=== PATIENT | male | born 1960 | race Hispanic/Latino ===

== ENCOUNTER → 2019-07-27 | Outpatient (CLI) | payer OTHER ==
[~2019-07-27] MED LIST: AMLO10TA7 PO; ATOR20TA65 PO; CALC667C10 PO; CHOL100018 PO; FURO-151 PO; GABA-531 PO; HUM10VIA6 SQ; KETO.5OS OS; LATA7.5D OP; LOSA100T58 PO; METO200T49 PO; SEVE800 PO; SEVE800T7 PO; WARF-57 PO
== END | disposition home or self-care (01) ==
LOC: SHCH 13:24
PROVIDERS: ATTEND Internal Medicine Cardiovascular Disease
DX: I11.9 Hypertensive heart disease without heart failure (principal)
CPT/HCPCS: 93306

== ENCOUNTER → 2019-07-29 | Outpatient (CLI) | payer OTHER ==
[~2019-07-29] VITALS: Ht 160 cm; Wt 72.6 kg
[~2019-07-29] MED LIST changes: +REGADENOSON 0.4 MG/5 ML PF SYG IVP SCH
== END | disposition home or self-care (01) ==
LOC: SHCH 07:45
PROVIDERS: ATTEND Internal Medicine Cardiovascular Disease
DX: I12.0 Hypertensive chronic kidney disease with stage 5 chronic kidney disease or end stage renal disease (principal); N18.9 Chronic kidney disease, unspecified; I48.0 Paroxysmal atrial fibrillation; Z99.2 Dependence on renal dialysis
CPT/HCPCS: 78452; 93017; 96374; A9500 ×2; J2785

== ENCOUNTER → 2021-01-24 | Outpatient (CLI) | payer OTHER ==
[~2021-01-24] VITALS: Ht 162.6 cm; Wt 71.2 kg
[~2021-01-24] MED LIST changes: +AMLO-258 PO; -AMLO10TA7 PO; -REGADENOSON 0.4 MG/5 ML PF SYG IVP SCH
[2021-01-24 14:31] LABS: BASOPHILS % (AUTO) 0.7 % (0.0-5.0); HEMATOCRIT 38.9 % (42-54); LYMPHOCYTES % (AUTO) 13.8 % (21.0-51.0); MEAN CORPUSCULAR HGB CONC 32.9 g/dL (32.0-36.0); MEAN CORPUSCULAR VOLUME 91.3 fL (79-99); MONOCYTES % (AUTO) 11.1 % (3.0-13.0); NEUTROPHILS % (AUTO) 71.3 % (40.0-77.0); PLATELET COUNT (AUTO) 196 K/uL (130-400); RED BLOOD CELL COUNT(AUTO) 4.26 MIL/uL (4.50-6.20)
[2021-01-24 14:40] LABS: CREATININE 5.8 mg/dL (0.5-1.5); POTASSIUM 5.8 mmol/L (3.5-5.1)
[2021-01-24 14:43] LABS: INR 3.26 (0.85-1.15); PROTHROMBIN TIME 31.9 SEC (9.6-11.6)
[2021-01-24 14:44] LABS: PARTIAL THROMBOPLASTIN TIME 45.5 SEC (26.3-35.5)
[2021-01-24 16:07] VITALS: BP 159/75
== END | disposition home or self-care (01) ==
LOC: DAH 10:00 → EDSTATUS 01-25 13:00
PROVIDERS: ATTEND Internal Medicine Cardiovascular Disease
DX: I25.10 Atherosclerotic heart disease of native coronary artery without angina pectoris (principal); Z79.01 Long term (current) use of anticoagulants; Z79.4 Long term (current) use of insulin; Z83.3 Family history of diabetes mellitus; Z82.49 Family history of ischemic heart disease and other diseases of the circulatory system; Z79.899 Other long term (current) drug therapy; Z53.8 Procedure and treatment not carried out for other reasons
CPT/HCPCS: 36415; 71045; 80048; 85025; 85610; 85730; 93005

== ENCOUNTER 2021-03-12 08:52 | Day surgery (SDC) | payer OTHER ==
[2021-03-09 13:15] LABS: CREATININE 5.2 mg/dL (0.5-1.5); POTASSIUM 4.3 mmol/L (3.5-5.1)
[2021-03-09 13:16] LABS: INR 1.12 (0.85-1.15); PROTHROMBIN TIME 12.1 SEC (9.6-11.6)
[2021-03-09 13:17] LABS: PARTIAL THROMBOPLASTIN TIME 27.1 SEC (26.3-35.5)
[2021-03-09 13:26] LABS: HEMATOCRIT 33.9 % (42-54); LYMPHOCYTES % (AUTO) 16.1 % (21.0-51.0); MEAN CORPUSCULAR HEMOGLOBIN 30.2 pg (27.0-33.0); MEAN CORPUSCULAR HGB CONC 32.7 g/dL (32.0-36.0); MEAN CORPUSCULAR VOLUME 92.1 fL (79-99); NEUTROPHILS % (AUTO) 67.6 % (40.0-77.0); PLATELET COUNT (AUTO) 178 K/uL (130-400); RED BLOOD CELL COUNT(AUTO) 3.68 MIL/uL (4.50-6.20); RED CELL DISTRIBUTION WIDTH 12.5 % (11.0-15.5); WHITE BLOOD COUNT (AUTO) 5.7 K/uL (4.8-10.8)
[2021-03-09 17:15] VITALS: BP 125/61
[~2021-03-12] VITALS: Ht 162.6 cm; Wt 70.1 kg
[2021-03-12] VITALS (24 sets, daily range): BP systolic 115–146; BP diastolic 55–68
[~2021-03-12 08:52] MED LIST changes: +ALOG25TA2 PO; -ATOR20TA65 PO; +ATOR40TA69 PO; -FURO-151 PO; -GABA-531 PO; -HUM10VIA6 SQ; +INSU100V12 SQ; -KETO.5OS OS; -LATA7.5D OP; +LATA7.5D OU; -LOSA100T58 PO; -METO200T49 PO; +MULT-1367 PO; +OMEP20CA12 PO; -SEVE800 PO; +SODIUM CHLORIDE 0.9% 1000ML 1,000 ML IV ONE
[2021-03-12] MEDS ORDERED: NITROGLYCERIN 2 MG/VIAL VIAL IV ONE (09:23)
[2021-03-12] MEDS ORDERED: IOHEXOL 350 MG/ML 100ML INFUS..BTL IV ONE (09:23)
[2021-03-12] MEDS ORDERED: HEPARIN SODIUM 1000UNIT/ML 10ML VIAL ONE (09:23)
[2021-03-12] MEDS ORDERED: SODIUM BICARB 50MEQ 50ML VIAL 50 ML ONE (09:23)
[2021-03-12] MEDS ORDERED: IOHEXOL-350 50ML VIAL IV ONE (09:23)
[2021-03-12] MEDS ORDERED: MIDAZOLAM HCL 1 MG/ML 2ML VIAL ONE ×2 (09:24→10:25)
[2021-03-12] MEDS ORDERED: MEPERIDINE-PF 25 MG/ML SYG ONE ×2 (09:24→10:25)
[2021-03-12] MEDS ORDERED: LIDOCAINE HCL 2% 20ML ONE (09:24)
[2021-03-12] MEDS ORDERED: ASPIRIN 81MG TAB.CHEW ONE (10:39)
[2021-03-12] MEDS ORDERED: CLOPIDOGREL BISULFATE 300 MG TAB ONE (10:39)
[2021-03-12] MEDS ORDERED: SODIUM CHLORIDE 0.9% 10 ML VIAL IV SCH (10:45)
[2021-03-12] MEDS ORDERED: ONDANSETRON HCL 4 MG/2 ML VIAL IVP PRN (10:45)
[2021-03-12] MEDS ORDERED: DEXTROSE 50%-WATER 50 ML DISP.SYRIN IV PRN (10:45)
[2021-03-12] MEDS ORDERED: ACETAMINOPHEN-CODEINE 300/30MG TAB PO PRN ×2 (10:45)
[2021-03-12] MEDS ORDERED: INSULIN HUMULIN R 100 UNIT/ML 3ML SQ SCH (11:30)
== END 2021-03-12 19:10 | disposition home or self-care (01) ==
LOC: DAH 08:52
PROVIDERS: ATTEND Internal Medicine Cardiovascular Disease
DX: I25.119 Atherosclerotic heart disease of native coronary artery with unspecified angina pectoris (principal); E11.22 Type 2 diabetes mellitus with diabetic chronic kidney disease; N18.6 End stage renal disease; I48.91 Unspecified atrial fibrillation; I42.9 Cardiomyopathy, unspecified; Z79.82 Long term (current) use of aspirin; Z99.2 Dependence on renal dialysis; Z79.01 Long term (current) use of anticoagulants; Z79.899 Other long term (current) drug therapy; Z98.890 Other specified postprocedural states
CPT/HCPCS: 36415; 71045; 80048; 82948 ×2; 85025; 85610; 85730; 93005; 93458; A4215; A4221; A4223 ×2; A4606; A4663; A6260; A6402; C1760 ×2; C1769; C1874; C1887; C1894; C9600; J1644 ×3; J2175 ×2; J2250 ×2; J3490 ×3; J7030; Q9965; Q9967 ×2; 99156; 99157

== ENCOUNTER → 2022-01-24 | Outpatient (CLI) | payer OTHER ==
[~2022-01-24] MED LIST changes: -OMEP20CA12 PO; -SODIUM CHLORIDE 0.9% 1000ML 1,000 ML IV ONE
== END | disposition home or self-care (01) ==
LOC: SHCH 07:52
PROVIDERS: ATTEND Internal Medicine Cardiovascular Disease
DX: I08.0 Rheumatic disorders of both mitral and aortic valves (principal); I13.10 Hypertensive heart and chronic kidney disease without heart failure, with stage 1 through stage 4 chronic kidney disease, or unspecified chronic kidney disease; E11.22 Type 2 diabetes mellitus with diabetic chronic kidney disease; N18.9 Chronic kidney disease, unspecified; I48.0 Paroxysmal atrial fibrillation; E78.5 Hyperlipidemia, unspecified; I25.10 Atherosclerotic heart disease of native coronary artery without angina pectoris; I65.23 Occlusion and stenosis of bilateral carotid arteries; Z95.5 Presence of coronary angioplasty implant and graft
CPT/HCPCS: 93306; 93880

== ENCOUNTER 2023-05-01 06:01 | Day surgery (SDC) | payer OTHER ==
[2023-04-29 10:55] LABS: HEMATOCRIT 37.2 % (42-54); MEAN CORPUSCULAR HEMOGLOBIN 30.6 pg (27.0-33.0); MEAN CORPUSCULAR VOLUME 95.6 fL (79-99); RED BLOOD CELL COUNT(AUTO) 3.89 MIL/uL (4.50-6.20); RED CELL DISTRIBUTION WIDTH 14.5 % (11.0-15.5); WHITE BLOOD COUNT (AUTO) 6.8 K/uL (4.8-10.8)
[2023-04-29 11:04] LABS: CREATININE 6.5 mg/dL (0.5-1.5); POTASSIUM 4.4 mmol/L (3.5-5.1)
[2023-04-29 11:06] LABS: INR 1.18 (0.85-1.15); PROTHROMBIN TIME 13.5 SEC (9.6-11.6)
[2023-04-29 11:08] LABS: PARTIAL THROMBOPLASTIN TIME 32.1 SEC (26.3-35.5)
[2023-04-30 09:11] VITALS: BP 133/64
[2023-05-01] VITALS (17 sets, daily range): BP systolic 101–137; BP diastolic 49–64
[~2023-05-01] VITALS: Ht 162.6 cm; Wt 69.0 kg
[~2023-05-01 06:01] MED LIST changes: +AEC81 PO; -ALOG25TA2 PO; +ALOG6.252 PO; +APIX5TAB PO; +BRIM5DRO21 OS; +BUPIVACAINE/PF 0.5% 30ML VIAL INJ ONE; +CARB100C9 PO; +CEFAZOLIN SODIUM 1 GM VIAL IRRIG ONE; +CEFAZOLIN SODIUM 2 GM VIAL IVPB ONE; -CHOL100018 PO; +FOLI1CAP16 PO; +HYDR-3422 PO; +HYDR-4153 PO; +ISOS30TA92 PO; +LOSA50TA64 PO; -MULT-1367 PO; +TIMO1DRO9 OU; -WARF-57 PO
[2023-05-01] MEDS ORDERED: CEFAZOLIN SODIUM 2 GM VIAL ONE (07:07)
[2023-05-01] MEDS ORDERED: 0.9% NACL 500ML IV.SOLN 500 ML IV ONE (07:07)
[2023-05-01] MEDS ORDERED: BUPIVACAINE/PF 0.5% 30ML VIAL ONE (07:09)
[2023-05-01] MEDS ORDERED: CEFAZOLIN SODIUM 1 GM VIAL ONE (07:09)
[2023-05-01 07:16] LABS: CREATININE 5.9 mg/dL (0.5-1.5); POTASSIUM 4.2 mmol/L (3.5-5.1)
[2023-05-01] MEDS ORDERED: SUCCINYLCHOLINE CHLORIDE 20 MG/ML 10 ML VIAL ONE (07:50)
[2023-05-01] MEDS ORDERED: FENTANYL CITRATE PF 50 MCG/1 ML 2ML VIAL ONE (07:50)
[2023-05-01] MEDS ORDERED: GLYCOPYRROLATE 1 MG/5 ML SYRINGE ONE (07:50)
[2023-05-01] MEDS ORDERED: LIDOCAINE PF 100MG/5ML (2%) SYRINGE 5ML ONE (07:50)
[2023-05-01] MEDS ORDERED: PROPOFOL 10 MG/ML 20ML VIAL IV ONE (07:50)
[2023-05-01] MEDS ORDERED: ONDANSETRON 4MG INJ ONE (07:50)
[2023-05-01] MEDS ORDERED: DEXAMETHASONE SOD PHOSPHATE 10MG/ML 1ML VIAL ONE (07:50)
[2023-05-01] MEDS ORDERED: ROCURONIUM 10MG/1ML SYR 10 MG/ML ML ONE (07:51)
[2023-05-01] MEDS ORDERED: NEOSTIGMINE 5MG/5ML SYR IV ONE (07:51)
[2023-05-01] MEDS ORDERED: MIDAZOLAM HCL 1 MG/ML 2ML VIAL ONE (07:51)
[2023-05-01] MEDS ORDERED: CEFAZOLIN SODIUM 2 GM VIAL IVPB ONE (08:16)
[2023-05-01] MEDS ORDERED: BUPIVACAINE/PF 0.5% 30ML VIAL INJ ONE (08:16)
[2023-05-01] MEDS ORDERED: CEFAZOLIN SODIUM 1 GM VIAL IRRIG ONE (08:16)
== END 2023-05-01 11:25 | disposition home or self-care (01) ==
LOC: DAH 06:01
PROVIDERS: ATTEND Thoracic Surgery (Cardiothoracic Vascular Surgery)
DX: I77.0 Arteriovenous fistula, acquired (principal); Z20.822 Contact with and (suspected) exposure to COVID-19; E11.22 Type 2 diabetes mellitus with diabetic chronic kidney disease; I12.0 Hypertensive chronic kidney disease with stage 5 chronic kidney disease or end stage renal disease; N18.6 End stage renal disease; E78.5 Hyperlipidemia, unspecified; I25.10 Atherosclerotic heart disease of native coronary artery without angina pectoris; Z79.01 Long term (current) use of anticoagulants; Z79.899 Other long term (current) drug therapy; Z79.82 Long term (current) use of aspirin; Z98.890 Other specified postprocedural states
CPT/HCPCS: 80048 ×2; 85027; 85610; 85730; 86850; 86900; 86901; 87426; 36415 ×2; 71045; 93005; 37607; 82948 ×2; A6260; A4663; J7030; J7040; J3010; J0690 ×4; J3490 ×3; J1100; J2710; J0330; J2001; J2250; J2704; J2405; J1644; A6446; A4649; C1713 ×2; A4215; A4223; A4222; A4221

== ENCOUNTER 2023-05-05 09:34 | Inpatient (IN) | payer OTHER ==
[~2023-05-05] VITALS: Ht 162.6 cm; Wt 68.5 kg
[2023-05-05] VITALS (22 sets, daily range): BP systolic 137–159; BP diastolic 60–102
[~2023-05-05 09:34] MED LIST changes: -BUPIVACAINE/PF 0.5% 30ML VIAL INJ ONE; -CEFAZOLIN SODIUM 1 GM VIAL IRRIG ONE; -CEFAZOLIN SODIUM 2 GM VIAL IVPB ONE
[2023-05-05 10:35] LABS: BASOPHILS % (AUTO) 0.8 % (0.0-5.0); EOSINOPHILS % (AUTO) 4.7 % (0.0-8.0); HEMATOCRIT 31.6 % (42-54); MEAN CORPUSCULAR HEMOGLOBIN 30.6 pg (27.0-33.0); MEAN CORPUSCULAR HGB CONC 32.6 g/dL (32.0-36.0); MEAN CORPUSCULAR VOLUME 93.8 fL (79-99); MONOCYTES % (AUTO) 12.8 % (3.0-13.0); NEUTROPHILS % (AUTO) 75.5 % (40.0-77.0); PLATELET COUNT (AUTO) 175 K/uL (130-400); RED BLOOD CELL COUNT(AUTO) 3.37 MIL/uL (4.50-6.20); RED CELL DISTRIBUTION WIDTH 14.2 % (11.0-15.5); WHITE BLOOD COUNT (AUTO) 8.3 K/uL (4.8-10.8)
[2023-05-05 10:43] LABS: ALBUMIN 4.1 g/dL (3.5-5.0); CARBON DIOXIDE 27 mmol/L (21-32); CHLORIDE 91 mmol/L (101-111); GLOMERULAR FILTR. RATE CALC 5 mL/min (>90); GLUCOSE,RANDOM 208 mg/dL (70-105); POTASSIUM 4.6 mmol/L (3.5-5.1); SODIUM SERUM 132 mmol/L (136-145); UREA NITROGEN, BLOOD 73 mg/dL (7-18)
[2023-05-05 10:46] LABS: ASPARTATE AMINOTRANSFERASE 17 U/L (10-37); TOTAL PROTEIN, SERUM 8.4 g/dL (6.0-8.3)
[2023-05-05 11:03] LABS: ALANINE AMINOTRANSFERASE < 6 U/L (12-78)
[2023-05-05 12:42] LABS: INR 1.15 (0.85-1.15); PROTHROMBIN TIME 13.2 SEC (9.6-11.6)
[2023-05-05 12:43] LABS: PARTIAL THROMBOPLASTIN TIME 36.7 SEC (26.3-35.5)
[2023-05-05] MEDS ORDERED: VANCOMYCIN KIT 1 GM/250 ML IV.KIT IV ONE (14:30)
[2023-05-05] MEDS ORDERED: ZOSYN 3.375GM +NS 50ML IVPB ONE (14:30)
[2023-05-05] MEDS ORDERED: ONDANSETRON 4MG INJ IVP PRN (15:30)
[2023-05-05] MEDS ORDERED: GLUCAGON 1MG KIT 1 MG ML IM PRN (15:30)
[2023-05-05] MEDS ORDERED: HYDR-4153 PO (15:57)
[2023-05-05] MEDS ORDERED: ALOG6.252 PO (15:57)
[2023-05-05] MEDS ORDERED: AEC81 PO (15:57)
[2023-05-05] MEDS ORDERED: GABA-529 PO (15:57)
[2023-05-05] MEDS ORDERED: ATOR40TA69 PO (15:57)
[2023-05-05] MEDS ORDERED: METO-408 PO (15:57)
[2023-05-05] MEDS ORDERED: ISOS30TA92 PO (15:57)
[2023-05-05] MEDS ORDERED: HYDR-3422 PO (15:57)
[2023-05-05] MEDS ORDERED: AMLO-258 PO (15:57)
[2023-05-05] MEDS ORDERED: LOSA50TA64 PO (15:57)
[2023-05-05] MEDS ORDERED: FOLI0.8T41 PO (15:57)
[2023-05-05] MEDS ORDERED: ACET325T51 PO (15:57)
[2023-05-05] MEDS: INSULIN HUMULIN R 100 UNIT/ML 3ML SQ SCH ×2 (17:09→20:23)
[2023-05-05] MEDS ORDERED: PHARMACY COMMUNICATION MISC SCH (17:30)
[2023-05-05] MEDS ORDERED: HEPARIN 1,000 UNIT VIAL ONE (17:49)
[2023-05-05] MEDS ORDERED: LIDOCAINE HCL 1% MDV 50ML VIAL ONE (17:49)
[2023-05-05] MEDS ORDERED: VANCOMYCIN PROTOCOL PER PHARMACY IV SCH (18:00)
[2023-05-05] MEDS: ACETAMINOPHEN 325 MG TAB PO PRN (19:53)
[2023-05-05] MEDS ORDERED: HEPARIN 5,000 UNIT VIAL IV SCH (22:30)
[2023-05-05] MEDS ORDERED: ATOR40TA71 PO (23:08)
[2023-05-06 00:02] VITALS: BP 156/65
[2023-05-06 02:41] LABS: HEPATITIS B SURFACE ANTIGEN Non-Reactive (Nonreactive)
[2023-05-06 04:00] VITALS: BP 158/67
[2023-05-06] MEDS: ACETAMINOPHEN 325 MG TAB PO PRN (04:14)
[2023-05-06] MEDS: INSULIN HUMULIN R 100 UNIT/ML 3ML SQ SCH ×4 (05:29→20:47)
[2023-05-06 05:41] LABS: MEAN CORPUSCULAR HEMOGLOBIN 30.1 pg (27.0-33.0); MEAN CORPUSCULAR HGB CONC 32.8 g/dL (32.0-36.0); MEAN CORPUSCULAR VOLUME 91.8 fL (79-99); RED BLOOD CELL COUNT(AUTO) 3.16 MIL/uL (4.50-6.20); RED CELL DISTRIBUTION WIDTH 14.1 % (11.0-15.5); WHITE BLOOD COUNT (AUTO) 7.4 K/uL (4.8-10.8)
[2023-05-06 06:03] LABS: ALBUMIN 3.3 g/dL (3.5-5.0); CREATININE 6.9 mg/dL (0.5-1.5); MAGNESIUM 1.8 mg/dL (1.80-2.40); PHOSPHORUS 4.3 mg/dL (2.5-4.9); POTASSIUM 4.1 mmol/L (3.5-5.1); TOTAL PROTEIN, SERUM 7.2 g/dL (6.0-8.3)
[2023-05-06 08:00] VITALS: BP 152/71
[2023-05-06 11:30] VITALS: BP 152/68
[2023-05-06] MEDS: PANTOPRAZOLE 40 MG/VIAL IVP SCH (11:35)
[2023-05-06] MEDS ORDERED: GABAPENTIN 100 MG CAPSULE PO PRN (15:00)
[2023-05-06 16:00] VITALS: BP 151/76
[2023-05-06 19:00] VITALS: BP 150/69
[2023-05-06] MEDS: HYDROXYZINE 25 MG TABLET PO SCH (20:43)
[2023-05-06] MEDS: METOPROLOL SUCCINATE 25 MG TAB.SR.24H PO SCH (20:43)
[2023-05-06] MEDS: HYDRALAZINE 25MG TABLET PO SCH (20:44)
[2023-05-06] MEDS: APIXABAN 5 MG TABLET PO SCH (20:44)
[2023-05-06] MEDS: ATORVASTATIN 40 MG TABLET PO SCH (20:44)
[2023-05-06] MEDS: TIMOLOL MALEATE 0.5% 5 ML BOTTLE OU SCH (20:47)
[2023-05-06] MEDS ORDERED: TIMOLOL MALEATE OU SCH (21:00)
[2023-05-06] MEDS ORDERED: HYDROXYZINE HCL 25 MG PO SCH (21:00)
[2023-05-06] MEDS ORDERED: [UNRECOGNIZED DRUG - OTHER] OU SCH (21:00)
[2023-05-07] VITALS (20 sets, daily range): BP systolic 125–155; BP diastolic 56–69
[2023-05-07] MEDS: DEXTROSE 50%-WATER 50 ML DISP.SYRIN IV PRN (00:18)
[2023-05-07] MEDS: INSULIN HUMULIN R 100 UNIT/ML 3ML SQ SCH ×4 (05:53→21:00)
[2023-05-07] MEDS: TIMOLOL MALEATE 0.5% 5 ML BOTTLE OU SCH ×2 (08:43→21:00)
[2023-05-07] MEDS: BRIMONIDINE TARTRATE 0.2% 5 ML BOTTLE OS SCH (08:43)
[2023-05-07] MEDS: AMLODIPINE 5 MG TAB PO SCH (08:44)
[2023-05-07] MEDS: APIXABAN 5 MG TABLET PO SCH ×2 (08:45→20:23)
[2023-05-07] MEDS: LOSARTAN 50 MG TABLET PO SCH (08:45)
[2023-05-07] MEDS: PANTOPRAZOLE 40 MG/VIAL IVP SCH (08:46)
[2023-05-07] MEDS: ASPIRIN 81 MG EC TAB PO SCH (08:46)
[2023-05-07] MEDS: HYDRALAZINE 25MG TABLET PO SCH ×2 (08:46→20:23)
[2023-05-07] MEDS: ISOSORBIDE MONO 30MG SR TAB PO SCH (08:47)
[2023-05-07] MEDS ORDERED: NON-FORMULARY MEDICATION 1 EACH (Amlodipine Besylate 10 MG) PO SCH (09:00)
[2023-05-07] MEDS ORDERED: VANCOMYCIN KIT 1 GM/250 ML IV.KIT IV SCH (09:00)
[2023-05-07] MEDS ORDERED: [UNRECOGNIZED DRUG - OTHER] OS SCH (09:00)
[2023-05-07] MEDS ORDERED: VIT BCOMP C PO SCH (09:00)
[2023-05-07] MEDS ORDERED: TIMOLOL OS SCH (09:00)
[2023-05-07] MEDS ORDERED: BRIMONIDINE TARTRATE OS SCH (09:00)
[2023-05-07] MEDS ORDERED: FOLIC ACID PO SCH (09:00)
[2023-05-07] MEDS: Vitamin B Complex/Vit C/Folic Acid PO SCH (11:32)
[2023-05-07] MEDS: ACETAMINOPHEN 325 MG TAB PO PRN (11:37)
[2023-05-07] MEDS: VANCOMYCIN 500MG+NS 100ML 100 ML IV SCH ×2 (18:43→20:24)
[2023-05-07] MEDS: ATORVASTATIN 40 MG TABLET PO SCH (20:23)
[2023-05-07] MEDS: HYDROXYZINE 25 MG TABLET PO SCH (20:23)
[2023-05-07] MEDS: METOPROLOL SUCCINATE 25 MG TAB.SR.24H PO SCH (20:28)
[2023-05-08 03:38] VITALS: BP 146/65
[2023-05-08 05:51] LABS: HEMATOCRIT 27.5 % (42-54); MEAN CORPUSCULAR HEMOGLOBIN 30.3 pg (27.0-33.0); MEAN CORPUSCULAR HGB CONC 32.7 g/dL (32.0-36.0); MEAN CORPUSCULAR VOLUME 92.6 fL (79-99); RED BLOOD CELL COUNT(AUTO) 2.97 MIL/uL (4.50-6.20); RED CELL DISTRIBUTION WIDTH 13.7 % (11.0-15.5); WHITE BLOOD COUNT (AUTO) 6.8 K/uL (4.8-10.8)
[2023-05-08 06:07] LABS: CREATININE 6.5 mg/dL (0.5-1.5); PHOSPHORUS 4.6 mg/dL (2.5-4.9); POTASSIUM 4.3 mmol/L (3.5-5.1)
[2023-05-08] MEDS: INSULIN HUMULIN R 100 UNIT/ML 3ML SQ SCH ×4 (06:12→20:49)
[2023-05-08 08:00] VITALS: BP 146/79
[2023-05-08] MEDS: Vitamin B Complex/Vit C/Folic Acid PO SCH (08:36)
[2023-05-08] MEDS: LOSARTAN 50 MG TABLET PO SCH (08:36)
[2023-05-08] MEDS: ISOSORBIDE MONO 30MG SR TAB PO SCH (08:36)
[2023-05-08] MEDS: AMLODIPINE 5 MG TAB PO SCH (08:37)
[2023-05-08] MEDS: ASPIRIN 81 MG EC TAB PO SCH (08:37)
[2023-05-08] MEDS: HYDRALAZINE 25MG TABLET PO SCH ×2 (08:37→20:43)
[2023-05-08] MEDS: APIXABAN 5 MG TABLET PO SCH ×2 (08:37→20:43)
[2023-05-08] MEDS: TIMOLOL MALEATE 0.5% 5 ML BOTTLE OU SCH ×2 (08:38→20:50)
[2023-05-08] MEDS: ACETAMINOPHEN 325 MG TAB PO PRN (08:50)
[2023-05-08] MEDS: PANTOPRAZOLE 40 MG/VIAL IVP SCH (09:00)
[2023-05-08] MEDS: BRIMONIDINE TARTRATE 0.2% 5 ML BOTTLE OS SCH (09:00)
[2023-05-08 12:06] VITALS: BP 130/56
[2023-05-08 16:00] VITALS: BP 120/61
[2023-05-08] MEDS ORDERED: IOHEXOL 350 MG/ML 100ML INFUS..BTL IV ONE (18:10)
[2023-05-08 20:00] VITALS: BP 138/66
[2023-05-08] MEDS: METOPROLOL SUCCINATE 25 MG TAB.SR.24H PO SCH (20:42)
[2023-05-08] MEDS: ATORVASTATIN 40 MG TABLET PO SCH (20:43)
[2023-05-08] MEDS: HYDROXYZINE 25 MG TABLET PO SCH (20:43)
[2023-05-09] VITALS (23 sets, daily range): BP systolic 119–152; BP diastolic 54–73
[2023-05-09 05:25] LABS: BASOPHILS % (AUTO) 0.9 % (0.0-5.0); EOSINOPHILS % (AUTO) 6.9 % (0.0-8.0); HEMATOCRIT 26.6 % (42-54); LYMPHOCYTES % (AUTO) 7.4 % (21.0-51.0); MEAN CORPUSCULAR HGB CONC 32.7 g/dL (32.0-36.0); MEAN CORPUSCULAR VOLUME 91.7 fL (79-99); MONOCYTES % (AUTO) 13.9 % (3.0-13.0); NEUTROPHILS % (AUTO) 70.5 % (40.0-77.0); PLATELET COUNT (AUTO) 172 K/uL (130-400); RED CELL DISTRIBUTION WIDTH 13.7 % (11.0-15.5)
[2023-05-09 05:37] LABS: PHOSPHORUS 5.5 mg/dL (2.5-4.9); POTASSIUM 4.6 mmol/L (3.5-5.1)
[2023-05-09 05:46] LABS: CREATININE 8.4 mg/dL (0.5-1.5)
[2023-05-09] MEDS: INSULIN HUMULIN R 100 UNIT/ML 3ML SQ SCH ×4 (06:47→20:45)
[2023-05-09] MEDS: BRIMONIDINE TARTRATE 0.2% 5 ML BOTTLE OS SCH (09:00)
[2023-05-09] MEDS: TIMOLOL MALEATE 0.5% 5 ML BOTTLE OU SCH ×2 (09:00→21:00)
[2023-05-09] MEDS: PANTOPRAZOLE 40 MG/VIAL IVP SCH (13:46)
[2023-05-09] MEDS: Vitamin B Complex/Vit C/Folic Acid PO SCH (13:46)
[2023-05-09] MEDS: HYDRALAZINE 25MG TABLET PO SCH ×2 (13:46→20:45)
[2023-05-09] MEDS: ASPIRIN 81 MG EC TAB PO SCH (13:47)
[2023-05-09] MEDS: APIXABAN 5 MG TABLET PO SCH ×2 (13:47→20:44)
[2023-05-09] MEDS: ISOSORBIDE MONO 30MG SR TAB PO SCH (13:47)
[2023-05-09] MEDS: LOSARTAN 50 MG TABLET PO SCH (13:48)
[2023-05-09] MEDS: AMLODIPINE 5 MG TAB PO SCH (13:49)
[2023-05-09] MEDS: VANCOMYCIN 750MG VIAL IVPB SCH (18:01)
[2023-05-09] MEDS: ATORVASTATIN 40 MG TABLET PO SCH (20:44)
[2023-05-09] MEDS: HYDROXYZINE 25 MG TABLET PO SCH (20:44)
[2023-05-09] MEDS: METOPROLOL SUCCINATE 25 MG TAB.SR.24H PO SCH (20:44)
[2023-05-09] MEDS: ACETAMINOPHEN 325 MG TAB PO PRN (22:52)
[2023-05-09] MEDS: DEXTROSE 50%-WATER 50 ML DISP.SYRIN IV PRN (23:58)
[2023-05-10 04:00] VITALS: BP 131/59
[2023-05-10] MEDS: INSULIN HUMULIN R 100 UNIT/ML 3ML SQ SCH ×4 (06:23→20:46)
[2023-05-10 08:00] VITALS: BP 146/63
[2023-05-10] MEDS: BRIMONIDINE TARTRATE 0.2% 5 ML BOTTLE OS SCH (09:00)
[2023-05-10] MEDS: TIMOLOL MALEATE 0.5% 5 ML BOTTLE OU SCH ×2 (09:00→20:53)
[2023-05-10] MEDS: PANTOPRAZOLE 40 MG/VIAL IVP SCH (09:27)
[2023-05-10] MEDS: APIXABAN 5 MG TABLET PO SCH ×2 (09:28→20:46)
[2023-05-10] MEDS: Vitamin B Complex/Vit C/Folic Acid PO SCH (09:28)
[2023-05-10] MEDS: ISOSORBIDE MONO 30MG SR TAB PO SCH (09:28)
[2023-05-10] MEDS: LOSARTAN 50 MG TABLET PO SCH (09:28)
[2023-05-10] MEDS: ASPIRIN 81 MG EC TAB PO SCH (09:29)
[2023-05-10] MEDS: AMLODIPINE 5 MG TAB PO SCH (09:29)
[2023-05-10] MEDS: HYDRALAZINE 25MG TABLET PO SCH ×2 (09:29→20:46)
[2023-05-10] MEDS: ACETAMINOPHEN 325 MG TAB PO PRN (11:07)
[2023-05-10 11:34] VITALS: BP 141/61
[2023-05-10 16:00] VITALS: BP 119/54
[2023-05-10 19:20] VITALS: BP 131/65
[2023-05-10] MEDS: HYDROXYZINE 25 MG TABLET PO SCH (20:46)
[2023-05-10] MEDS: METOPROLOL SUCCINATE 25 MG TAB.SR.24H PO SCH (20:47)
[2023-05-10] MEDS: ATORVASTATIN 40 MG TABLET PO SCH (20:47)
[2023-05-10 22:58] VITALS: BP 116/52
[2023-05-11 03:31] VITALS: BP 130/61
[2023-05-11] MEDS: INSULIN HUMULIN R 100 UNIT/ML 3ML SQ SCH ×4 (06:14→20:11)
[2023-05-11 08:01] VITALS: BP 136/64
[2023-05-11] MEDS: HYDRALAZINE 25MG TABLET PO SCH ×2 (08:47→20:11)
[2023-05-11] MEDS: Vitamin B Complex/Vit C/Folic Acid PO SCH (08:47)
[2023-05-11] MEDS: ISOSORBIDE MONO 30MG SR TAB PO SCH (08:48)
[2023-05-11] MEDS: LOSARTAN 50 MG TABLET PO SCH (08:48)
[2023-05-11] MEDS: AMLODIPINE 5 MG TAB PO SCH (08:48)
[2023-05-11] MEDS: ASPIRIN 81 MG EC TAB PO SCH (08:48)
[2023-05-11] MEDS: PANTOPRAZOLE 40 MG/VIAL IVP SCH (08:48)
[2023-05-11] MEDS: APIXABAN 5 MG TABLET PO SCH ×2 (08:49→20:10)
[2023-05-11] MEDS: TIMOLOL MALEATE 0.5% 5 ML BOTTLE OU SCH ×2 (08:57→20:11)
[2023-05-11] MEDS: BRIMONIDINE TARTRATE 0.2% 5 ML BOTTLE OS SCH (08:57)
[2023-05-11] MEDS ORDERED: PHARMACY COMMUNICATION MISC SCH ×2 (10:00→10:30)
[2023-05-11 11:22] VITALS: BP 138/65
[2023-05-11] MEDS: ACETAMINOPHEN 325 MG TAB PO PRN (15:09)
[2023-05-11 16:22] VITALS: BP 120/60
[2023-05-11 19:59] VITALS: BP 130/63
[2023-05-11] MEDS: METOPROLOL SUCCINATE 25 MG TAB.SR.24H PO SCH (20:10)
[2023-05-11] MEDS: ATORVASTATIN 40 MG TABLET PO SCH (20:11)
[2023-05-11] MEDS: HYDROXYZINE 25 MG TABLET PO SCH (20:11)
[2023-05-11 23:25] VITALS: BP 130/62
[2023-05-12] VITALS (20 sets, daily range): BP systolic 123–152; BP diastolic 59–68
[2023-05-12 06:14] LABS: BASOPHILS % (AUTO) 1.2 % (0.0-5.0); EOSINOPHILS % (AUTO) 8.1 % (0.0-8.0); HEMATOCRIT 24.6 % (42-54); LYMPHOCYTES % (AUTO) 7.2 % (21.0-51.0); MEAN CORPUSCULAR HEMOGLOBIN 30.2 pg (27.0-33.0); MEAN CORPUSCULAR HGB CONC 32.5 g/dL (32.0-36.0); MEAN CORPUSCULAR VOLUME 92.8 fL (79-99); MONOCYTES % (AUTO) 16.6 % (3.0-13.0); NEUTROPHILS % (AUTO) 66.5 % (40.0-77.0); PLATELET COUNT (AUTO) 161 K/uL (130-400); RED BLOOD CELL COUNT(AUTO) 2.65 MIL/uL (4.50-6.20); RED CELL DISTRIBUTION WIDTH 13.9 % (11.0-15.5); WHITE BLOOD COUNT (AUTO) 6.9 K/uL (4.8-10.8)
[2023-05-12 06:28] LABS: PHOSPHORUS 6.2 mg/dL (2.5-4.9); POTASSIUM 4.6 mmol/L (3.5-5.1)
[2023-05-12 06:32] LABS: CREATININE 9.9 mg/dL (0.5-1.5)
[2023-05-12] MEDS: INSULIN HUMULIN R 100 UNIT/ML 3ML SQ SCH ×4 (06:41→21:42)
[2023-05-12] MEDS: APIXABAN 5 MG TABLET PO SCH ×2 (08:48→20:35)
[2023-05-12] MEDS: ASPIRIN 81 MG EC TAB PO SCH (08:49)
[2023-05-12] MEDS: ISOSORBIDE MONO 30MG SR TAB PO SCH (08:49)
[2023-05-12] MEDS: AMLODIPINE 5 MG TAB PO SCH (08:49)
[2023-05-12] MEDS: Vitamin B Complex/Vit C/Folic Acid PO SCH (08:49)
[2023-05-12] MEDS: HYDRALAZINE 25MG TABLET PO SCH ×2 (08:49→20:35)
[2023-05-12] MEDS: LOSARTAN 50 MG TABLET PO SCH (08:49)
[2023-05-12] MEDS: BRIMONIDINE TARTRATE 0.2% 5 ML BOTTLE OS SCH (08:50)
[2023-05-12] MEDS: PANTOPRAZOLE 40 MG/VIAL IVP SCH (08:50)
[2023-05-12] MEDS: TIMOLOL MALEATE 0.5% 5 ML BOTTLE OU SCH ×2 (08:53→20:34)
[2023-05-12] MEDS: VANCOMYCIN 750MG VIAL IVPB SCH (16:05)
[2023-05-12] MEDS: METOPROLOL SUCCINATE 25 MG TAB.SR.24H PO SCH (20:34)
[2023-05-12] MEDS: HYDROXYZINE 25 MG TABLET PO SCH (20:35)
[2023-05-12] MEDS: ATORVASTATIN 40 MG TABLET PO SCH (20:35)
[2023-05-13] VITALS: BP 135/60
[2023-05-13] MEDS: ACETAMINOPHEN 325 MG TAB PO PRN (00:07)
[2023-05-13 04:00] VITALS: BP 133/60
[2023-05-13 05:07] LABS: HEMATOCRIT 25.8 % (42-54); MEAN CORPUSCULAR HEMOGLOBIN 29.8 pg (27.0-33.0); MEAN CORPUSCULAR HGB CONC 32.9 g/dL (32.0-36.0); MEAN CORPUSCULAR VOLUME 90.5 fL (79-99); PLATELET COUNT (AUTO) 178 K/uL (130-400); RED BLOOD CELL COUNT(AUTO) 2.85 MIL/uL (4.50-6.20); RED CELL DISTRIBUTION WIDTH 13.7 % (11.0-15.5); WHITE BLOOD COUNT (AUTO) 7.7 K/uL (4.8-10.8)
[2023-05-13 05:32] LABS: PHOSPHORUS 5.3 mg/dL (2.5-4.9); POTASSIUM 4.3 mmol/L (3.5-5.1)
[2023-05-13] MEDS: INSULIN HUMULIN R 100 UNIT/ML 3ML SQ SCH ×2 (05:58→11:09)
[2023-05-13 06:04] LABS: BAND NEUTROPHILS % (MANUAL) 1 % (0-2); BASOPHILS % (MANUAL) 2 % (0-2); EOSINOPHILS % (MANUAL) 4 % (1-6); LYMPHOCYTES % (MANUAL) 5 % (22-44); MAN.DIFF COMMENT-IMPRESSION MANUAL DIFFERENTIAL; MONOCYTES % (MANUAL) 16 % (2-9); SEGMENTED NEUTROPHILS % 72 % (40-70)
[2023-05-13 07:51] VITALS: BP 141/63
[2023-05-13] MEDS: PANTOPRAZOLE 40 MG/VIAL IVP SCH (08:41)
[2023-05-13] MEDS: HYDRALAZINE 25MG TABLET PO SCH (08:41)
[2023-05-13] MEDS: ASPIRIN 81 MG EC TAB PO SCH (08:42)
[2023-05-13] MEDS: Vitamin B Complex/Vit C/Folic Acid PO SCH (08:42)
[2023-05-13] MEDS: LOSARTAN 50 MG TABLET PO SCH (08:42)
[2023-05-13] MEDS: AMLODIPINE 5 MG TAB PO SCH (08:42)
[2023-05-13] MEDS: APIXABAN 5 MG TABLET PO SCH (08:42)
[2023-05-13] MEDS: ISOSORBIDE MONO 30MG SR TAB PO SCH (08:42)
[2023-05-13] MEDS: TIMOLOL MALEATE 0.5% 5 ML BOTTLE OU SCH (08:43)
[2023-05-13] MEDS: BRIMONIDINE TARTRATE 0.2% 5 ML BOTTLE OS SCH (08:44)
[2023-05-13] MEDS ORDERED: HONEY 1 APPL/ML TUBE TP SCH (09:00)
[2023-05-13 11:27] VITALS: BP 133/57
[2023-05-13 16:00] VITALS: BP 128/62
== END 2023-05-13 17:00 | disposition home or self-care (01) | DRG 314 ==
LOC: EDH 09:34 → OBSVTOIN 13:42 → EDHIP 13:42 → 4CH 19:05
PROVIDERS: ADMIT Internal Medicine Nephrology; ATTEND Internal Medicine Nephrology
PROC: 0JH63XZ Insertion of Tunneled Vascular Access Device into Chest Subcutaneous Tissue and Fascia, Percutaneous Approach (ICD-10-PCS; principal; 2023-05-05)
PROC: 02H633Z Insertion of Infusion Device into Right Atrium, Percutaneous Approach (ICD-10-PCS; 2023-05-05)
PROC: B5181ZA Fluoroscopy of Superior Vena Cava using Low Osmolar Contrast, Guidance (ICD-10-PCS; 2023-05-05)
PROC: 5A1D70Z Performance of Urinary Filtration, Intermittent, Less than 6 Hours Per Day (ICD-10-PCS; 2023-05-05)
PROC: 5A1D70Z Performance of Urinary Filtration, Intermittent, Less than 6 Hours Per Day (ICD-10-PCS; 2023-05-07)
PROC: 5A1D70Z Performance of Urinary Filtration, Intermittent, Less than 6 Hours Per Day (ICD-10-PCS; 2023-05-09)
PROC: 5A1D70Z Performance of Urinary Filtration, Intermittent, Less than 6 Hours Per Day (ICD-10-PCS; 2023-05-12)
DX: T82.7XXA Infection and inflammatory reaction due to other cardiac and vascular devices, implants and grafts, initial encounter (principal); N18.6 End stage renal disease; I12.0 Hypertensive chronic kidney disease with stage 5 chronic kidney disease or end stage renal disease; E11.22 Type 2 diabetes mellitus with diabetic chronic kidney disease; I25.10 Atherosclerotic heart disease of native coronary artery without angina pectoris; E78.5 Hyperlipidemia, unspecified; D64.9 Anemia, unspecified; E11.51 Type 2 diabetes mellitus with diabetic peripheral angiopathy without gangrene; I48.91 Unspecified atrial fibrillation; Y92.89 Other specified places as the place of occurrence of the external cause; Y83.8 Other surgical procedures as the cause of abnormal reaction of the patient, or of later complication, without mention of misadventure at the time of the procedure; Y83.2 Surgical operation with anastomosis, bypass or graft as the cause of abnormal reaction of the patient, or of later complication, without mention of misadventure at the time of the procedure; Z99.2 Dependence on renal dialysis
CPT/HCPCS: 36415; 36558; 73206; 77001; 80048; 80053; 80202; 82948; 83605; 83735; 84100; 85025; 85027; 85378; 85610; 85730; 86140; 86704; 87040; 87340; 90935; 93971; 99291; C1750; C9113; G0378; J1644; J1815; J2543; J3370; J3490; J7070; Q9967

== ENCOUNTER 2023-06-29 13:42 | Emergency (ER) | payer OTHER ==
[~2023-06-29] VITALS: Ht 162.6 cm; Wt 63.5 kg
[~2023-06-29 13:42] MED LIST changes: +ACET325T51 PO; -ATOR40TA69 PO; +ATOR40TA71 PO; -CALC667C10 PO; -CARB100C9 PO; +FOLI0.8T41 PO; -FOLI1CAP16 PO; +GABA-529 PO; -INSU100V12 SQ; -LATA7.5D OU; +METO-408 PO; -SEVE800T7 PO
[2023-06-29 13:44] VITALS: BP 151/82; PULSE 68; RESP 16
== END 2023-06-29 18:35 | disposition left against medical advice (07) ==
LOC: EDH 13:42
DX: R68.89 Other general symptoms and signs (principal); Z53.21 Procedure and treatment not carried out due to patient leaving prior to being seen by health care provider
CPT/HCPCS: 99281

== ENCOUNTER 2023-11-03 09:16 | Emergency (ER) | payer OTHER, MEDICARE ==
[~2023-11-03] VITALS: Ht 162.6 cm; Wt 66.2 kg
[~2023-11-03 09:16] MED LIST changes: -ACET325T51 PO; -BRIM5DRO21 OS; +BRIM5DRO5 OP; +CALC667C10 PO; +CARB-60 PO; -GABA-529 PO; +INSU100V12 SQ; +LATA2.5D14 OP; +SEVE800T27 PO; -TIMO1DRO9 OU; +TIMO5SOL10 OP
[2023-11-03 09:46] LABS: BASOPHILS # (AUTO) 0.04 K/uL (0.00-0.20); BASOPHILS % (AUTO) 0.3 % (0.0-5.0); IMMATURE GRANULOCYTE ABSOLUTE 0.06 K/uL (0-1); LYMPHOCYTES # (AUTO) 0.5 K/uL (1.0-4.8); LYMPHOCYTES % (AUTO) 3.9 % (21.0-51.0); MEAN CORPUSCULAR HEMOGLOBIN 30.3 pg (27.0-33.0); MEAN CORPUSCULAR HGB CONC 32.7 g/dL (32.0-36.0); MEAN CORPUSCULAR VOLUME 92.7 fL (79-99); MONOCYTES % (AUTO) 7.1 % (3.0-13.0); NEUTROPHILS # (AUTO) 11.9 K/uL (1.8-7.7); NEUTROPHILS % (AUTO) 88.3 % (40.0-77.0); PLATELET COUNT (AUTO) 120 K/uL (130-400); RED BLOOD CELL COUNT(AUTO) 3.56 MIL/uL (4.50-6.20); RED CELL DISTRIBUTION WIDTH 13.5 % (11.0-15.5); WHITE BLOOD COUNT (AUTO) 13.5 K/uL (4.8-10.8)
[2023-11-03 09:58] LABS: ALBUMIN 3.5 g/dL (3.5-5.0); BILIRUBIN,TOTAL 0.7 mg/dL (0.2-1.0); POTASSIUM 5.5 mmol/L (3.5-5.1); TOTAL PROTEIN, SERUM 8.1 g/dL (6.0-8.3)
[2023-11-03 10:03] LABS: CREATININE 10.3 mg/dL (0.5-1.5)
[2023-11-03 10:37] LABS: RAPID GROUP A STREP negative (NEGATIVE)
[2023-11-03 10:42] LABS: SARS-CoV-2, RNA, NAAT NEGATIVE SARS CoV-2 (NEGATIVE)
[2023-11-03 10:45] VITALS: BP 163/74; PULSE 84; RESP 18; O2SAT 94
[2023-11-03 10:47] LABS: INFLUENZA TYPE A Negative For Type A (NEGATIVE); INFLUENZA TYPE B Negative For Type B (NEGATIVE)
== END 2023-11-03 13:11 | disposition home or self-care (01) ==
LOC: EDH 09:16
DX: B34.9 Viral infection, unspecified (principal); I12.0 Hypertensive chronic kidney disease with stage 5 chronic kidney disease or end stage renal disease; E11.22 Type 2 diabetes mellitus with diabetic chronic kidney disease; N18.6 End stage renal disease; E78.00 Pure hypercholesterolemia, unspecified; I48.91 Unspecified atrial fibrillation; Z79.82 Long term (current) use of aspirin; Z79.84 Long term (current) use of oral hypoglycemic drugs; Z79.899 Other long term (current) drug therapy; Z98.890 Other specified postprocedural states; Z20.822 Contact with and (suspected) exposure to COVID-19
CPT/HCPCS: 36415; 71045; 80053; 85025; 87635; 87804; 87880

== ENCOUNTER 2023-12-09 15:10 | Emergency (ER) | payer MEDICARE, OTHER ==
[~2023-12-09] VITALS: Ht 160 cm; Wt 72.6 kg
[~2023-12-09 15:10] MED LIST changes: -HYDR-4153 PO; +HYDR25TA67 PO
[2023-12-09 15:20] LABS: ABG BASE EXCESS -3.7 mmol/L (-2.0-3.0); ABG HCO3 25.9 mmol/L (21.0-28.0); ABG OXYGEN SATURATION 80.3 % (95.0-99.0); ABG PCO2 78 mmHg (35-48); ABG PH 7.138 (7.35-7.450); CARBON MONOXIDE 0.7; HHb 19.5; PO2, ARTERIAL BG 61.2 mmHg (83.0-108.0); VENT MODE, BG AMBU (ROOM AIR)
[2023-12-09 15:23] VITALS: PULSE 84; O2SAT 97
[2023-12-09] MEDS: NOREPINEPHRIN 4MG/NS 250ML 250 ML IV SCH (15:34)
[2023-12-09 15:41] VITALS: BP 120/67; PULSE 111; RESP 18; O2SAT 100
[2023-12-09 15:54] LABS: BASOPHILS # (AUTO) 0.03 K/uL (0.00-0.20); BASOPHILS % (AUTO) 0.3 % (0.0-5.0); EOSINOPHILS # (AUTO) 0.01 K/uL (0.00-0.70); EOSINOPHILS % (AUTO) 0.1 % (0.0-8.0); HEMATOCRIT 27.3 % (42-54); IMMATURE GRANULOCYTE ABSOLUTE 0.07 K/uL (0-1); LYMPHOCYTES # (AUTO) 1.9 K/uL (1.0-4.8); LYMPHOCYTES % (AUTO) 20.4 % (21.0-51.0); MEAN CORPUSCULAR HGB CONC 32.6 g/dL (32.0-36.0); MEAN CORPUSCULAR VOLUME 95.1 fL (79-99); MONOCYTES # (AUTO) 0.6 K/uL (0.1-1.0); MONOCYTES % (AUTO) 6.3 % (3.0-13.0); NEUTROPHILS # (AUTO) 6.8 K/uL (1.8-7.7); NEUTROPHILS % (AUTO) 72.2 % (40.0-77.0); PLATELET COUNT (AUTO) 76 K/uL (130-400); RED BLOOD CELL COUNT(AUTO) 2.87 MIL/uL (4.50-6.20); RED CELL DISTRIBUTION WIDTH 14.7 % (11.0-15.5); WHITE BLOOD COUNT (AUTO) 9.5 K/uL (4.8-10.8)
[2023-12-09 16:12] LABS: CREATININE 7.4 mg/dL (0.5-1.5); POTASSIUM 4.4 mmol/L (3.5-5.1)
[2023-12-09 16:17] LABS: INR 1.23 (0.85-1.15); PROTHROMBIN TIME 14.1 SEC (9.6-11.6)
[2023-12-09 16:18] LABS: PARTIAL THROMBOPLASTIN TIME 47.7 SEC (26.3-35.5)
[2023-12-09 16:19] LABS: ALBUMIN 3.1 g/dL (3.5-5.0); BILIRUBIN,TOTAL 0.9 mg/dL (0.2-1.0); MAGNESIUM 2.2 mg/dL (1.80-2.40); TOTAL PROTEIN, SERUM 6.8 g/dL (6.0-8.3)
[2023-12-09 16:32] LABS: BAND NEUTROPHILS % (MANUAL) 41 % (0-2); EOSINOPHILS % (MANUAL) 1 % (1-6); LYMPHOCYTES % (MANUAL) 24 % (22-44); MAN.DIFF COMMENT-IMPRESSION MANUAL DIFFERENTIAL; MONOCYTES % (MANUAL) 4 % (2-9); REACTIVE LYMPHOCYTES 4 % (0-0); SEGMENTED NEUTROPHILS % 26 % (40-70); TOTAL CELLS COUNTED 100
[2023-12-09 16:33] LABS: WBC MORPHOLOGY TOXIC GRANULATION 1+
== END 2023-12-09 19:05 ==
LOC: EDH 15:10
DX: I46.9 Cardiac arrest, cause unspecified (principal); I12.0 Hypertensive chronic kidney disease with stage 5 chronic kidney disease or end stage renal disease; E11.22 Type 2 diabetes mellitus with diabetic chronic kidney disease; N18.6 End stage renal disease; Z99.2 Dependence on renal dialysis; Z79.01 Long term (current) use of anticoagulants; Z79.82 Long term (current) use of aspirin; Z79.899 Other long term (current) drug therapy
CPT/HCPCS: 36415; 36600; 71045; 80053; 82435; 82803; 82947; 83605; 83735; 84132; 84295; 84484; 85018; 85025; 85610; 85730; 92950; 93005; 94002; 99291